=== PATIENT | male | born 1955 | race Caucasian/White ===

== ENCOUNTER 2022-11-20 12:02 | Emergency (ER) | payer BC, OTHER ==
[~2022-11-20] VITALS: Ht 167.6 cm; Wt 104.8 kg
[2022-11-20 12:15] VITALS: BP 139/79; PULSE 66; RESP 20; TEMP 98; O2SAT 99
[2022-11-20 12:39] VITALS: O2SAT 99
--- NOTE | 2022-11-20 12:48 | NUR ---
PATIENT PRESENTS TO ED WITH DOG BITES ON LEFT AND RIGHT HAND. PT STATES WAS BITTEN BY A PITBULL. PT DENIES N/V/D; SKIN IS PINK/WARM/DRY; AAOX4 WITH EVEN AND STEADY GAIT; LUNGS CLEAR BL; HR EVEN AND REGULAR; PT DENIES ANY FEVER, CP, SOB, OR COUGH AT THIS TIME; PATIENT STATES PAIN OF 0/10 AT THIS TIME; VSS; PATIENT POSITIONED FOR COMFORT; HOB ELEVATED; BEDRAILS UP X2; BED DOWN. ER MD MADE AWARE OF PT STATUS. 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
[2022-11-20] MEDS ORDERED: BACITRACIN OINT 500 UNITS/GM PKT TP ONE (12:50)
[2022-11-20] MEDS ORDERED: LIDOCAINE MPF 1% 10 MG/ML VIAL INJ ONE (12:50)
--- NOTE | 2022-11-20 13:08 | NUR ---
WOUND IRRIGATION LT LEFT FA AND RT HAND DONE BY EMT
--- NOTE | 2022-11-20 13:20 | NUR ---
PTS WOUNDS HAVE BEEN IRRIGATED
[2022-11-20] MEDS ORDERED: AMOX-1230 PO (13:48)
--- NOTE | 2022-11-20 13:56 | NUR ---
PT HAS BEEN SEEN BY PROVIDER, SUTURES HAVE BEEN APPLIED.
--- NOTE | 2022-11-20 14:02 | NUR ---
DRESSING APPLIED PER PROVIDERS ORDERS.
[2022-11-20 14:03] VITALS: BP 139/82; PULSE 99; RESP 20; TEMP 98; O2SAT 79
--- NOTE | 2022-11-20 14:03 | NUR ---
Patient discharged with v/s stable. Written and verbal after care instructions given and explained. Patient verbalized understanding. Ambulatory with to car. All questions addressed prior to discharge. Advised to follow up with PMD.
--- NOTE | 2022-11-20 14:54 | NUR ---
PT LEFT WITHOUT RECIEVING PAPER WORK COPY OF VACCCINE. LEFT MESSAGE FOR PT ON CELL PHONE.
--- NOTE | 2022-11-20 16:00 | NUR ---
Pt has received paperwork for immunization.
--- NOTE | 2022-11-20 18:12 | NUR ---
The patient's care was reviewed and supervised by TORIE SETH RN.
== END 2022-11-20 14:40 | disposition home or self-care (01) ==
LOC: MED 12:02
DX: S61.431A Puncture wound without foreign body of right hand, initial encounter (principal); S51.812A Laceration without foreign body of left forearm, initial encounter; I10 Essential (primary) hypertension; E78.5 Hyperlipidemia, unspecified; Z79.899 Other long term (current) drug therapy; W54.0XXA Bitten by dog, initial encounter; Y93.89 Activity, other specified; Y92.89 Other specified places as the place of occurrence of the external cause; Y99.8 Other external cause status
CPT/HCPCS: 12001; 73130; 90471; 90715; 99283; J2001; Q0092

== ENCOUNTER 2022-11-23 16:13 | Emergency (ER) | payer BC, OTHER ==
[~2022-11-23] VITALS: Ht 165.1 cm; Wt 81.6 kg
[~2022-11-23 16:13] MED LIST: AMOX-1230 PO
[2022-11-23 16:28] VITALS: BP 151/93; PULSE 75; RESP 18; TEMP 98.1; O2SAT 98
--- NOTE | 2022-11-23 17:04 | NUR ---
ROLL GAUZE AND NON ADHERENT APPLIED TO WOUND.
[2022-11-23] MEDS ORDERED: BACITRACIN OINT 500 UNITS/GM PKT TP ONE (17:15)
[2022-11-23] MEDS ORDERED: BACI-418 TP (17:19)
--- NOTE | 2022-11-23 17:20 | NUR ---
BACITRACIN WAS APPLIED TO SKIN AROUND SUTURES.
[2022-11-23 17:28] VITALS: BP 151/93; PULSE 75; RESP 18; TEMP 98.1; O2SAT 98
--- NOTE | 2022-11-23 17:28 | NUR ---
Patient discharged with v/s stable. Written and verbal after care instructions given and explained. Patient alert, oriented and verbalized understanding of instructions. Ambulatory with steady gait. All questions addressed prior to discharge. ID band removed. Patient advised to follow up with PMD. Rx of BACITRACIN (SENT) given. Patient educated on indication of medication including possible reaction and side effects. Opportunity to ask questions provided and answered.
== END 2022-11-23 17:28 | disposition home or self-care (01) ==
LOC: MED 16:13
DX: S61.451D Open bite of right hand, subsequent encounter (principal); S51.852D Open bite of left forearm, subsequent encounter; Z88.5 Allergy status to narcotic agent; Z79.899 Other long term (current) drug therapy; Z85.528 Personal history of other malignant neoplasm of kidney; Z98.890 Other specified postprocedural states; X58.XXXD Exposure to other specified factors, subsequent encounter
CPT/HCPCS: 99282

== ENCOUNTER 2022-11-29 17:35 | Emergency (ER) | payer BC, OTHER ==
[~2022-11-29] VITALS: Ht 172.7 cm; Wt 79.4 kg
[~2022-11-29 17:35] MED LIST changes: +BACI-418 TP
[2022-11-29 17:48] VITALS: BP 149/80; PULSE 74; RESP 17; TEMP 97.4; O2SAT 99
--- NOTE | 2022-11-29 18:00 | NUR ---
Pt bibs for suture removal after dog bite 10 days ago. Pt had sutures placed at bite site on L forearm. Sutures removed. Pt tolerated well. Pt is a/o x 4, vss, no ss of acute distress, breathing equal and unlabored, speech clear. Wound is closed. No bleeding or fluid from site. No swelling.
--- NOTE | 2022-11-29 18:03 | NUR ---
Patient discharged with v/s stable. Written and verbal after care instructions given and explained. Patient verbalized understanding. Ambulatory with steady gait. All questions addressed prior to discharge. Advised to follow up with PMD.
[2022-11-29] MEDS ORDERED: BACITRACIN OINT 500 UNITS/GM PKT TP SCH (18:05)
--- NOTE | 2022-11-29 18:05 | NUR ---
dc'd by lead
== END 2022-11-29 18:03 | disposition home or self-care (01) ==
LOC: MED 17:35
DX: S51.812D Laceration without foreign body of left forearm, subsequent encounter (principal); Z48.02 Encounter for removal of sutures; Z85.528 Personal history of other malignant neoplasm of kidney; Z79.2 Long term (current) use of antibiotics; Z88.5 Allergy status to narcotic agent; W54.0XXD Bitten by dog, subsequent encounter
CPT/HCPCS: 99282